=== PATIENT | male | born 1965 | race Two or more races ===

== ENCOUNTER 2024-05-03 13:05 | Emergency (ER) | payer MEDICARE, MEDICAID, SELFPAY ==
[2024-05-03] VITALS (28 sets, daily range): BP systolic 128–220; BP diastolic 64–140; PULSE 92–111; RESP 12–31; TEMP 36.8–39.1; O2SAT 95–100; BMI 50.1
--- NOTE | 2024-05-03 13:14 | XR_ITS ---
Examination: CT brain head without contrast. 2-D sagittal coronal reconstructions Date and time of exam:May 03, 2024 1400 hours Comparison October 30, 2023 CTDI: vol (mGy):55.2 DLP: (mGycm):1186 INDICATIONS: Onset altered mental status today Technique: Multiple CT axial sections of the brain have been obtained, 5 mm slice thickness. Contrast has not been administered. 2-D sagittal, coronal reconstructions have been obtained Low dose protocols were performed. One or more of the following dose reduction techniques were used; automated exposure control, adjustment of the mA and/or KV according to patient size, use of iterative reconstruction technique. Findings: Acute left caudate nucleus hemorrhage at least 3.4 x 2.2 x 3.6 cm which has ruptured into the ventricular system, hemorrhage in the right frontal horn and third ventricle and both trigones Mass effect from this hemorrhage, shift of the frontal horns to the right at least 5 mm There also is subarachnoid hemorrhage over the posterior parietal sulci bilaterally, axial image 15 Cranial vault appears grossly intact with old fracture medial wall left orbit IMPRESSION: Large acute left caudate nucleus hemorrhage as above which has ruptured into the ventricular system Mass effect with shift of the frontal horns to the right at least 5 mm
--- NOTE | 2024-05-03 13:16 | XR_ITS ---
Examination: AP chest single view Technique AP portable semiupright chest single view Exam date and time: May 03, 2024 1434 hours Comparison April 07, 2024 INDICATIONS: Fever today. FINDINGS: Opacity left base obscuring detail left hemidiaphragm Mild left pleural fluid Mild prominence left ventricle Vascular congestion IMPRESSION: Early pneumonia left base
--- NOTE | 2024-05-03 13:18 | EDNOTE_ITS ---
Altered Mental Status RME/HPI General Chief Complaint: Altered Mental Status Stated Complaint: ALTERED MENTAL STATUS, LNW MONDAY Time Seen by Provider: 05/03/24 13:14 Arrival date/time: 05/03/24 13:05 This is a 58-year-old male that is brought into the emergency room with complaints of altered mental status. Patient brought in by ambulance for possible stroke. EMS report left-sided facial droop and left-sided weakness. Unknown when stroke symptoms started. Patient lives alone and last time family saw him was yesterday they saw him through the window and he was sitting on the couch. Upon arrival patient is GCS of 13 patient hypertensive. Per EMS family stated that when patient's ammonia is high he also presents with stroke like symptoms at that time. Patient has a history of alcohol induced cirrhosis, hypertension, history of esophageal varices, GI bleed, diverticulitis. Related Data Home Medications ?Medication ?Instructions ?Recorded ?Confirmed carvedilol 6.25 mg tablet mg 10/30/23 semaglutide (weight loss) 2.4 mg subcut 10/30/23 mg/0.75 mL subcutaneous pen injector (Wegovy) spironolactone 50 mg tablet mg 10/30/23 Previous Rx's ?Medication ?Instructions ?Recorded lactulose 10 gram/15 mL oral 30 g (45 mL) PO TID #3,785 mL 11/02/23 solution rifaximin 550 mg tablet (Xifaxan) 550 mg PO BID #60 tabs 11/02/23 Allergies Allergy/AdvReac Type Severity Reaction Status Date / Time No Known Allergies Allergy Verified 04/07/24 15:59 Review of Systems Review of Systems Systems Reviewed: All systems reviewed, normal except as documented Past Medical History Past Medical History CARDIAC: Positive Cardiac Disorders (HTN) OTHER HISTORY: Positive Blood Transfusions Social History SMOKING STATUS: Never smoker SUBSTANCE USE: does not use ALCOHOL: Former ED Exam General General appearance: Present other (drowsy, smells of urine ) Head Head exam: Present atraumatic Eye Eye exam: Present PERRL and EOMI ENT ENT exam: Present normal exam, normal oropharynx and mucous membranes moist Neck Neck exam: Present normal inspection, full ROM and trachea midline Chest Chest inspection: Present normal inspection and symmetric chest wall rise Respiratory Respiratory exam: Present other (diminished at bases ) Cardiovascular Cardiovascular exam: Present regular rate, normal rhythm and normal heart sounds Abdominal Exam Abdominal exam: Present soft and other (nontender to palpation ) Extremities Exam Extremities exam: Present full ROM Back Exam Back exam: Present normal inspection and full ROM Neurological Exam Neurological exam: Present other (drowsy, awakens with noxious stimuli, able to answer most questions appropriately, bilateral upper extremities equal hand train caller 4/5, able to lift both arms equal on bed, no pronator drift, not able to lift legs off bed but is able to push against my hands like a gas pedal and push feet up equal on b) Psychiatric Psychiatric exam: Present normal affect Skin Skin exam: Present warm and dry Course Course Course Narrative: updated family, [address] [id number] Quality Measures none Orders Category Date Time Status 24 HR Medical Restraints Q2HR Care 05/03/24 17:42 Completed Bedside COVID-19 Antigen Test NOW Care 05/03/24 14:44 Completed Bedside Influenza A&B Antigen Test NOW Care 05/03/24 14:44 Completed EKG (ED ONLY) *Do not use* NOW Care 05/03/24 13:18 Completed Emergency Titration Protocol Stat Care 05/03/24 15:56 Ordered Humphrey [Urinary Catheter] QS Care 05/03/24 14:30 Completed In and Out Catheter X1 Care 05/03/24 13:15 Completed Intubation NOW Care 05/03/24 15:25 Completed Transfuse,blood/blood products ONCE Care 05/03/24 14:39 Completed Transfer to another facility [Transfer/Discharge] Stat Discharge 05/03/24 15:[address] head/brain wo con Stat Exams 05/03/24 13:14 Completed CXR [XR chest 1V post procedure] Stat Exams 05/03/24 15:27 Completed CXRP [XR chest 1V portable] Stat Exams 05/03/24 16:40 Completed EKG (ED Only) Stat Exams 05/03/24 13:18 Draft XR chest 1V Stat Exams 05/03/24 13:16 Completed Alcohol, Blood Medical Stat Lab 05/03/24 13:33 Completed Ammonia Stat Lab 05/03/24 13:33 Completed BNP [B-Type Natriuretic Peptide] Stat Lab 05/03/24 13:33 Completed Blood Culture (Lab) Stat Lab 05/03/24 13:29 Completed CBC Stat Lab 05/03/24 13:33 Completed Comprehensive Metabolic Panel Stat Lab 05/03/24 13:33 Completed Drug Screen,Urine Stat Lab 05/03/24 14:00 Completed Lactate (Lactic Acid) Stat Lab 05/03/24 13:33 Completed PT [Prothrombin Time with INR] Stat Lab 05/03/24 13:33 Completed Sputum Culture and Gram Stain Routine Lab 05/03/24 16:14 Completed Troponin I Stat Lab 05/03/24 13:33 Completed Urinalysis, C/S if Indicated Stat Lab 05/03/24 14:00 Completed Urine Culture Stat Lab 05/03/24 14:00 Completed Acetaminophen Supp [Tylenol Supp] Med 05/03/24 13:30 Discontinued 650 mg MT X1 ONE Dexamethasone Inj [Decadron Inj] Med 05/03/24 14:17 Discontinued 10 mg IV X1 ONE Etomidate Inj [Amidate Inj] Med 05/03/24 14:58 Discontinued 20 mg IVP X1 ONE IV Filter 0.2 Micron Conical [Iv Conical Filter 0.2 Med 05/03/24 16:00 Discontinued Micron] 1 ea Mannitol Inj 20% IVPB 500 ml IV X1 LORazepam [Ativan Inj] Med 05/03/24 16:09 Discontinued 4 mg IVP X1 STA Nicardipine/Ns 20Mg Ivpb [Cardene Ivpb] Med 05/03/24 14:30 Discontinued 20 mg in 200 ml IV 5 mg/hr Phytonadione Inj [Vitamin K Inj] Med 05/03/24 14:34 Discontinued 10 mg IM X1 ONE Propofol 1,000 mg Ivpb [Diprivan Ivpb] Med 05/03/24 14:59 Discontinued 1,000 mg in 100 ml IV 5 mcg/kg/min Rocuronium Inj [Zemuron Inj] Med 05/03/24 16:07 Discontinued 20 mg IVP X1 ONE Sodium Chloride 0.9% 1000 ml [Ns] 1,000 ml Med 05/03/24 13:29 Discontinued IV 999 mls/hr Succinylcholine Inj [Anectine Inj] Med 05/03/24 14:58 Discontinued 100 mg IV X1 ONE Tranexamic Acid 1,000 mg Ivpb [Tranexamic Acid Ivpb] Med 05/03/24 16:00 Discontinued 1,000 mg in 100 ml IV X1 Tranexamic Acid 1,000 mg Ivpb [Tranexamic Acid Ivpb] Med 05/03/24 16:25 Discontinued 1,000 mg in 100 ml IV X1 Tranexamic Acid Inj Med 05/03/24 16:00 Discontinued 1,000 mg IV DAILY cefTRIAXone/D5w 1gm IV premix [Rocephin/D5w 1gm IV Med 05/03/24 14:33 Disc ontinued premix] 50 ml IV X1 levETIRAcetam INJ [Keppra Inj] Med 05/03/24 14:12 Discontinued 1,000 mg IVP X1 ONE Mechanical [Volume Ventilator] Stat RT 05/03/24 Active Vital Signs Vital signs: Vital Signs Temperature 102.4 F H 05/03/24 13:27 Pulse Rate 102 H 05/03/24 13:27 Respiratory Rate 18 05/03/24 13:27 Blood Pressure 128/64 05/03/24 13:27 Pulse Oximetry (%) 95 05/03/24 13:27 Oxygen Delivery Method Room Air 05/03/24 13:27 Procedures -ED EKG Interpretation #1: Date of EK05/03/24 Time of EK:24 Rate: 87 Interpretation: Interpreted by me (Sinus rhythm with occasional supraventricular premature complexes. Nonspecific T wave abnormality.) EKG Impression: Normal QRS Altered Mental Status MDM Narrative MDM Narrative:: Initiating this is a 58-year-old male that is brought into the emergency room with complaints of altered mental status. Patient brought in by ambulance for possible stroke. EMS report left-sided facial droop and left-sided weakness. Unknown when stroke symptoms started. Patient lives alone and last time family saw him was yesterday they saw him through the window and he was sitting on the couch. Upon arrival patient is GCS of 13. patient hypertensive on arrival 180/100. Per EMS family stated that when patient's ammonia is high he also presents with stroke like symptoms at that time per family report. Patient has a history of alcohol induced cirrhosis, hypertension, history of esophageal varices, GI bleed, diverticulitis. CT head: Findings: Acute left caudate nucleus hemorrhage at least 3.4 x 2.2 x 3.6 cm which has ruptured into the ventricular system, hemorrhage in the right frontal horn and third ventricle and both trigones Mass effect from this hemorrhage, shift of the frontal horns to the right at least 5 mm There also is subarachnoid hemorrhage over the posterior parietal sulci bilaterally, axial image 15 Cranial vault appears grossly intact with old fracture medial wall left orbit IMPRESSION: Large acute left caudate nucleus hemorrhage as above which has ruptured into the ventricular system Mass effect with shift of the frontal horns to the right at least [address] scan of head shows brain bleed. I discussed case with at length. He suggested decadron 10mg iv, vitamin k, Mannitol 50grams, ffp, keppra 10 00mg 1v x1 dose. He also wanted nicardipine to be given for a goal blood pressure of 120/80. We transferred to other facility for higher level of care. We first spoke to [facility]. We spoke to Dr. Boyle. He suggested that we do not give patient FFP or vitamin K, and instead give patient 1 g of txa now and then give an additional 1 g over 8 hours of txa. He was not able to accept patient at this time and would be doing a long surgery and feels he will not be available to take care of emergent patient. Transfer arrangements made for patient to be going to [facility]. I spoke to Pauline at the transfer center. Dr. Rayo excepted patient in transport. I also spoke to critical care Dr. Dr Rayo suggested the same to give the patient 1 g of TXA now and give another gram of TXA IV over 8 hours. He would like the nicardipine drip to have a goal blood pressure 150 systolic. He would also like patient to have 1 g/kg of mannitol. Ordered of mannitol changed to 100 g. Patient's mental status declined he would wake up to noxious stimuli but would quickly fall asleep again. Patient intubated at the bedside by Dr. Malloy. Etomidate and succinocholine given for intubation. Patient then started on a propofol drip. Labs show the following white count of 10.7. Hemoglobin and hematocrit are 14.6 and 42. Platelet count is 72. Patient's sodium 143, potassium 4.4, chloride 111, carbon dioxide 27.5 anion gap of 5, BUN of 34, creatinine of 1.0, total bilirubin of 8.1, AST of 151, ALT 40, troponin 0.021, PT 17.1, INR 1.6. Chest x ray: FINDINGS: Opacity left base obscuring detail left hemidiaphragm Mild left pleural fluid Mild prominence left ventricle Vascular congestion IMPRESSION: Early pneumonia left base Patient given rocephin 1 gram IV x 1 dose. IV team helped by placing a central line in right ij. Patient transferred to [facility] Patient data External records reviewed:: [facility] previous records Clinical information provided by:: patient and family Social determinants that could affect healthcare access:: alcohol use Patient has the following chronic illnesses:: see hpi How is presenting disease/condition affected by chronic disease/condition?: exacerbated by Evaluation data The following diagnostics were reviewed and interpreted by me:: lab results, radiology exam(s) and EKG tracing(s) Lab and/or radiology exams considered but not ordered:: none Interpretation Summary: see note Medications / Prescriptions Medications or Prescriptions considered but not ordered:: none Medication administrations:: Medication Administration History Discontinued Medications Acetaminophen (Acetaminophen Supp 650 Mg Supp) 650 mg MT X1 ONE Stop: 05/03/24 13:31 Last Admin: 05/03/24 17:29 Dose: Not Given Documented By: [facility] Non-Admin Reason: Change of Condition Comments: being transferred before could give Dexamethasone Sodium Phosphate (Dexamethasone Sod Phos Inj 10 Mg/Ml Vial) 10 mg IV X1 ONE Stop: 05/03/24 14:18 Last Admin: 05/03/24 17:11 Dose: 10 mg Documented By: [facility] Etomidate (Etomidate Inj 2 Mg/Ml Vial 10 Ml) 20 mg IVP X1 ONE Stop: 05/03/24 14:59 Last Admin: 05/03/24 15:23 Dose: 20 mg Documented By: Sodium Chloride (Ns) 1,000 mls @ 999 mls/hr IV .Q1H1M ONE Stop: 05/03/24 14:29 Last Admin: 05/03/24 16:01 Dose: 999 mls/hr Documented By: [facility] Nicardipine/Sodium Chloride (Cardene Ivpb) 20 mg in 200 mls @ 50 mls/hr IV .Q4H PRN; Protocol PRN Reason: PER PROTOCOL Stop: 06/02/24 14:29 Last Titration: 05/03/24 16:15 Dose: 0 mg/hr, 0 mls/hr Documented By: Admin: 05/03/24 15:31 Dose: 5 mg/hr, 50 mls/hr Documented By: Ceftriaxone Sodium/Dextrose (Rocephin/D5w 1gm Iv Premix) 50 mls @ 100 mls/hr IV X1 ONE Stop: 05/03/24 15:02 Last Admin: 05/03/24 17:29 Dose: Not Given Documented By: KDC Non-Admin Reason: Change of Condition Comments: transferred before could give Propofol (Diprivan Ivpb) 1,000 mg in 100 mls @ 3.946 mls/hr IV .Q24H PRN; Protocol PRN Reason: PER PROTOCOL Stop: 06/02/24 14:58 Last Admin: 05/03/24 17:46 Dose: 30 mcg/kg/min, 23.678 mls/hr Documented By: KDC Co-signed By: GOOD Titration: 05/03/24 17:46 Dose: Infused Documented By: KDC Co-signed By: GOOD Titration: 05/03/24 17:45 Dose: 0 mcg/kg/min, 0 mls/hr Documented By: Admin: 05/03/24 17:05 Dose: 30 mcg/kg/min, 23.678 mls/hr Documented By: KDC Co-signed By: JOSE D Titration: 05/03/24 17:05 Dose: Infused Documented By: KDC Co-signed By: JOSE D Titration: 05/03/24 17:04 Dose: 0 mcg/kg/min, 0 mls/hr Documented By: Titration: 05/03/24 15:57 Dose: 30 mcg/kg/min, 23.678 mls/hr Documented By: Titration: 05/03/24 15:47 Dose: 25 mcg/kg/min, 19.731 mls/hr Documented By: Admin: 05/03/24 15:35 Dose: 5 mcg/kg/min, 3.946 mls/hr Documented By: JOSE D Co-signed By: GOOD IV Miscellaneous Supplies 1 ea (/ Mannitol) 500 mls @ 3,000 mls/hr IV X1 ONE Stop: 05/03/24 16:09 Last Admin: 05/03/24 17:13 Dose: 3,000 mls/hr Documented By: EVANS Tranexamic Acid (Tranexamic Acid Ivpb) 1,000 mg in 100 mls @ 600 mls/hr IV X1 ONE Stop: 05/03/24 16:09 Last Admin: 05/03/24 17:20 Dose: 600 mls/hr Documented By: EVANS Tranexamic Acid (Tranexamic Acid Ivpb) 1,000 mg in 100 mls @ 12.5 mls/hr IV X1 ONE Stop: 05/04/24 00:24 Last Admin: 05/03/24 17:30 Dose: Not Given Documented By: [facility] Non-Admin Reason: Change of Condition Comments: being transferred before could give Levetiracetam (Levetiracetam Inj 100 Mg/Ml Vial 5ml) 1,000 mg IVP X1 ONE Stop: 05/03/24 14:13 Last Admin: 05/03/24 17:08 Dose: 1,000 mg Documented By: [facility] Lorazepam (Lorazepam 2 Mg/Ml Vial) 4 mg IVP X1 STA Stop: 05/03/24 16:10 Last Admin: 05/03/24 16:13 Dose: 4 mg Documented By: [facility] Phytonadione (Phytonadione Inj 10 Mg/Ml Amp) 10 mg IM X1 ONE Stop: 05/03/24 14:35 Last Admin: 05/03/24 16:20 Dose: 10 mg Documented By: [facility] Rocuronium [place] (Rocuronium Inj 10 Mg/Ml Vial 10 Ml) 20 mg IVP X1 ONE Stop: 05/03/24 16:08 Last Admin: 05/03/24 16:12 Dose: 20 mg Documented By: [facility] Co-signed By: JOSE D Comments: STOPPED PROPOFOL TO GIV MED Succinylcholine Chloride (Succinylcholine Inj 20 Mg/Ml Vial 10 Ml) 100 mg IV X1 ONE Stop: 05/03/24 14:59 Last Admin: 05/03/24 15:23 Dose: 100 mg Documented By: Tranexamic Acid (Tranexamic Acid Inj 1,000 Mg/10 Ml Vial) 1,000 mg IV DAILY CHRISTINA Stop: 06/02/24 15:59 Last Admin: 05/03/24 18:04 Dose: Not Given Documented By: [facility] Non-Admin Reason: Change of Condition see mar Consultations Consultation(s) initiated? (list below): Yes Consultation #1 (Physician, Specialty, Details): [id number] Consultation #2 (Physician, Specialty, Details): [facility] [id number] spoke to pauline hopkins 0536, accepted Diagnosis Differential diagnosis altered mental status: alcoholic intoxication, altered mental status, subarachnoid hemorrhage and other (ammonia elevated, uti, pneumonia ) Most likely diagnosis given after review of the tests above:: brain bleed Admission Indicated Admission indicated?: not indicated Explain why admission is indicated or not indicated:: pt transferred Admission Request Was there a request for admission?: No Disposition Plan Disposition Plan: Transfer Discharge Plan Plan Patient Disposition: [facility] Patient condition on transfer: Stable Prescriptions/Referrals Prescriptions/Med Rec: No Action carvedilol 6.25 mg tablet Patient Comments: TAKE 1 TABLET BY MOUTH TWICE DAILY WITH FOOD spironolactone 50 mg tablet Patient Comments: TAKE 1 TABLET BY MOUTH EVERY DAY Wegovy 2.4 mg/0.75 mL pen injector SUBCUT Xifaxan 550 mg Tablet 550 mg PO BID Qty: 60 2RF lactulose 10 gram/15 mL solution 30 g PO TID Qty: 3785 2RF Rx Instructions: With a goal of 3-4 bowel movements daily Referrals: Migel Lara MD [Primary Care Provider] - In 1 week Problem List Clinical Impression: Pneumonia, Subarachnoid hemorrhage, Fever, Intraventricular hemorrhage Patient/Caregiver Discharge Instructions Print Language: Tajik Stand Alone Forms: Isa Award Info., Patient Portal Info Letter PA/ICT SUPPORT ENGINEER Supervising Physician PA/ICT SUPPORT ENGINEER Supervising Physician: lee
--- NOTE | 2024-05-03 13:18 | EKG_ITS ---
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
[2024-05-03 13:44] LABS: Lactate (Lactic Acid) 3.6 mMol/L (0.4-2.0)
--- NOTE | 2024-05-03 13:48 | PC.NURSE ---
BIBA for AMS since Monday, Bottled Beverage Inspector. Upon arrival, pt has slurred speech. LKW, per auto engine mechanic, was on Monday04/29/2024. Pt has mild L-sided facial with general weakness but equal & strong carpenter bridge strength on bilateral hands. Pt also able to perform pedal movements with bialteral foot independently. Pt has hx of liver cirrhosis and hypertension.
[2024-05-03 13:51] LABS: Basophils % (Auto) 0 % (0-2.5); Eosinophils % (Auto) 0 % (0-10); Hemoglobin 14.6 g/dL (13.5-16.0); Immature Granulocytes % (Auto) 1 % (0-0); Immature Granulocytes Auto 0.06 Thou/mm3 (0.00-0.00); Lymphocytes % (Auto) 10 % (10-50); Mean Corpuscular HGB Conc 34.8 g/dl (31.0-37.0); Mean Corpuscular Hemoglobin 32.2 pg (25.0-35.0); Mean Corpuscular Volume 93 fL (80-100); Monocytes # (Auto) 1.6 Thou/mm3 (0.0-0.8); Monocytes % (Auto) 15 % (0-12); Neutrophils % (Auto) 75 % (37-80); Nucleated Red Blood Cell % 0 /100 WBC (0); Platelet Count 72 Thou/mm3 (140-440); RDW Standard Deviation 51.8 fL (35.1-43.9); Red Blood Count 4.54 Miln/mm3 (4.50-5.90); White Blood Count 10.7 Thou/mm3 (3.8-10.6)
[2024-05-03 13:59] LABS: INR 1.6 (0.9-1.3); Prothrombin Time 17.1 Seconds (9.0-12.2)
[2024-05-03 14:03] LABS: Ammonia 39 uMol/L (11-32); B-Type Natriuretic Peptide 32 pg/mL (0-100)
[2024-05-03 14:04] LABS: Albumin, Serum 3.1 gm/dL (3.5-5.0); Alcohol, Blood Medical < 10.0 mg/dL (0-10.0); Alkaline Phosphatase 142 U/L (46-116); Anion Gap 5 (7-16); Aspartate Amino Transferase 151 U/L (0-34); BUN/Creatinine Ratio 34 Ratio (12-20); Bilirubin,Total 8.1 mg/dL (0.3-1.2); Blood Urea Nitrogen 34 mg/dL (9-23); Calcium (Corrected) 9.7 mg/dL (8.5-10.1); Carbon Dioxide 27.5 mMol/L (20.0-31.0); Chloride 111 mMol/L (98-107); Glucose 117 mg/dL (74-106); Osmolality,Calculated 293 (275-295); Potassium 4.4 mMol/L (3.4-5.1); Sodium 143 mMol/L (136-145); Troponin I 0.021 ng/mL (0.0-0.045); eGFR > 60 See Note
[2024-05-03 14:08] LABS: Slide Review Platelets confirmed
[2024-05-03 14:15] LABS: Alanine Aminotransferase 40 U/L (10-49); Albumin/Globulin Ratio 0.9 (1.2-2.2); Globulin 3.6 gm/dL (2.3-3.5); Total Protein 6.7 gm/dL (5.7-8.2)
--- NOTE | 2024-05-03 14:36 | PC.CM ---
Addendum entered by David uW RN 05/03/24 16:15: ED to ED report to be called at [phone] Addendum entered by David Wu RN 05/03/24 16:13: 1530 Patient accepted by [facility] Dr. Rayo. Confirmed flight with [facility] ETA 1630, Packets and disc created for [facility] and [facility], handed off to ER CN Radha. Addendum entered by David Wu RN 05/03/24 15:18: Contacted [facility] [employer] [facility], they are performing a flight check and will confirm, ETA 60 if accepted. Addendum entered by David Wu RN 05/03/24 15:07: Images pushed to [facility] and [facility]. Addendum entered by David Wu RN 05/03/24 15:06: Received call from [facility], Dr. Boyle has reviewed images and due to change in patient's status and his schedule, he is now declining transfer, recommending [facility]. Addendum entered by David Wu RN 05/03/24 14:58: Received call from [facility] ADRIAN Peraza, Dr. Boyle will accept patient ER to ER, number for report [phone]. ER CN updated on acceptance. Original Note: Received call from ER CN requesting transfer request for neurosurgery, clinicals sent to [facility], [facility], [facility], and [facility].
--- NOTE | 2024-05-03 15:01 | PC.CC ---
ASWViv was consulted by LESIA Delatorre to make contact with the family as she needed to speak to them regarding his medical condition. ASSimi Nam made contact with patient's daughter Estephania Moser introduced self, role, and reason for contact and let her know that LESIA Delatorre would be contacting her regarding her father.
[2024-05-03] MEDS: ETOMIDATE INJ 2 MG/ML VIAL 10 ML 20 MG IVP (15:23)
[2024-05-03] MEDS: SUCCINYLCHOLINE INJ 20 MG/ML VIAL 10 ML 100 MG IV (15:23)
--- NOTE | 2024-05-03 15:25 | PC.NURSE ---
Pt intubated at this time; positive color change. 23cm at lip per RT.
--- NOTE | 2024-05-03 15:27 | XR_ITS ---
Examination: AP chest single view TECHNIQUE: AP portable supine chest single view Exam date and time: May 03, 2024 1535 hours Comparison May 03, 2024 1434 hours INDICATIONS: Hypoxic respiratory failure postintubation FINDINGS: Mild prominence left ventricle Endotracheal tube tip 4.2 cm above clem Pneumonia is not clearly evident at the left base on this study Minimal left pleural disease IMPRESSION: Endotracheal tube tip 4.2 cm above clem
[2024-05-03] MEDS: NICARDIPINE/NS 20MG IVPB 20 MG/200 ML BAG 50 MG IV (15:31)
[2024-05-03] MEDS: PROPOFOL 1,000 MG IVPB 1,000 MG/100 ML VIAL 3.946 MG IV (15:35)
[2024-05-03] MEDS: SODIUM CHLORIDE 0.9% 1000 ML 1,000 ML 999 ML IV (16:01)
--- NOTE | 2024-05-03 16:04 | PC.NURSE ---
AND JOSÉ N/P INFORMED THAT NURSE UNABLE TO IV MEDICATIONS DUE TO NOT BEING ABLE TO GET ANOTHER IV. AND CAN'T MIX MEDS WITH PROPOFOL OR NICARAPINE DRIP
--- NOTE | 2024-05-03 16:06 | PC.NURSE ---
@1535- Pt started on propofol drip. @1540- Per Dr. Malloy verbal order with readback , push 50mg of propofol to pt IVP STAT. Pt is agitated. RN pushed 50mg (5mL) of propofol from propofol bottle at this time. @1545- Per Dr. Malloy verbal order with readback , push 50mg of propofol to pt IVP STAT again. Pt is still agitated. RN pushed 50mg (5mL) of propofol from propofol bottle at this time. @31159- Per Dr. Malloy verbal order with readback , increase pt's propofol drip titration to 25mcg/kg/min due to pt still being agitated. RN increased pt's propofol drip to 25mcg/kg/min at this time.
[2024-05-03] MEDS: ROCURONIUM INJ 10 MG/ML VIAL 10 ML 20 MG IVP (16:12)
[2024-05-03] MEDS: LORazepam 2 MG/ML VIAL 4 MG IVP (16:13)
--- NOTE | 2024-05-03 16:15 | PC.NURSE ---
RN informed Makenna Ramos NP that pt's BP is 139/112; RN seeking clarification to discontinue Nicardipine drip. Per Makenna Ramos NP, stop Nicardipine drip at this time. Pt's systolic BP goal is 150.
[2024-05-03] MEDS: PHYTONADIONE INJ 10 MG/ML AMP IM (16:20)
--- NOTE | 2024-05-03 16:22 | PC.CC ---
Viv KLINE was consulted br LESIA Delatorre to inform patient's daughter that patient is being transferred to [facility]. ASW made contact patient's daughter Estephania and provided her with update that patient will be going to [facility].
[2024-05-03 16:23] LABS: Collection Type, Urine Catheter
--- NOTE | 2024-05-03 16:32 | PC.NURSE ---
Dr. Palmer at bedside performing emergent central line insertion.
[2024-05-03 16:37] LABS: Amphetamine/Methamp Scrn,U Negative (Negative); Barbiturate Screen,Urine Negative (Negative); Benzodiazepines Screen,Urine Negative (Negative); Benzoylecgonine Screen, Ur Negative (Negative); Fentanyl Screen,Urine Negative (Negative); Opiate Screen,Urine Negative (Negative); THC Screen,Urine Negative (Negative)
--- NOTE | 2024-05-03 16:39 | PC.NURSE ---
@1520- Pt has GCS change to 8; Dr. Malloy made aware at this time. Per Dr. Malloy, we will need to intubate pt. Vebal orders received for rapid sequence intubation.
--- NOTE | 2024-05-03 16:40 | XR_ITS ---
Examination: AP chest single view Technique one AP portable supine chest single view Exam date and time: May 03, 2024 at 1659 hours Comparison May 03, 2024 INDICATIONS: Hypoxic respiratory failure today, postintubation post central line placement FINDINGS: Mild enlargement cardiac contour Pleural parenchymal disease left base Endotracheal tube tip 4 cm above clem Right internal jugular central line tip right atrium no pneumothorax Mild to moderate vascular congestion IMPRESSION: Endotracheal tube tip 4 cm above clem Right internal jugular central line tip right atrium no pneumothorax
[2024-05-03 16:43] LABS: Reflex Lactate? Y
[2024-05-03] MEDS: PROPOFOL 1,000 MG IVPB 1,000 MG/100 ML VIAL 23.678 MG IV ×2 (17:05→17:46)
[2024-05-03] MEDS: levETIRAcetam INJ 100 MG/ML VIAL 5ML 1000 MG IVP (17:08)
[2024-05-03 17:09] LABS: Amorphous Crystals,Urine Present (Absent); Bilirubin,Urine 1+ (Negative); Blood,Urine 2+ (Negative); Clarity,Urine Clear (Clear/Hazy); Color,Urine Drk-Yellow (Lt Yel-Yel); Glucose, Urine Negative (Negative); Hyaline Casts,Urine < 1 /hpf (0-1); Ketones,Urine Negative (Negative); Leukocyte Esterase,Urine Negative (Negative); Nitrite,Urine Negative (Negative); Protein,Urine Trace (Neg - Trace); RBC,Urine 17 /hpf (0-3); Specific Gravity,Urine 1.027 (1.001-1.035); Squamous Epithelial Cell,Urine 1 /hpf (0-5); Urobilinogen,Urine 12 mg/dL (0.0-1.0); WBC,Urine 19 /hpf (0-5)
--- NOTE | 2024-05-03 17:10 | PC.NURSE ---
reach flight team here and report given by kali hunt
[2024-05-03] MEDS: DEXAMETHASONE SOD PHOS INJ 10 MG/ML VIAL IV (17:11)
--- NOTE | 2024-05-03 17:11 | PC.NURSE ---
Per Makenna Ramos NP, ok to use central line at this time.
[2024-05-03] MEDS: FILTER MICRON CONICAL IV (17:13)
[2024-05-03] MEDS: MANNITOL IV (17:13)
[2024-05-03] MEDS: TRANEXAMIC ACID 1,000 MG IVPB 1,000 MG/100 ML BAG 600 MG IV (17:20)
--- NOTE | 2024-05-03 17:36 | PC.NURSE ---
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 spare bottle taken from [employer] and given to [facility] flight nurse due to having transport time of 1 hour to [facility] in [place]
[2024-05-03 18:02] LABS: Culture Indicated,Urine Yes
--- NOTE | 2024-05-03 23:39 | PD.RESPROC ---
Procedures Procedure Date / Time 05/03/24 16:15 Central Line Placement Right IJ: Indication(s): poor, or inadequate peripheral venous access Time out done, and the following verified: correct patient, side and site, procedure, patient position and implants and/or equipment Patient placed on monitor/pulse ox: Yes Hand Hygiene: alcohol-based hand rub Max Sterile Barrier Techniques used: cap, mask, sterile gown, sterile gloves and sterile full body drape Central line prep: Povidone-Iodine 1% Local anesthesia used: other anesthetic Ultrasound used for placement: Yes Sterile Technique if Ultrasound used, including sterile gel: yes Central line lumen inserted: triple Post procedure: sutured in place, good blood return, all ports aspirated, flushed, capped and sterile dressing applied Post procedure x-ray: tip of catheter in good position and no pneumothorax seen Patient tolerated procedure: well and no complications EBL(ml): 5 Complications: none
== END 2024-05-03 17:50 | disposition short-term general hospital (02) ==
PROVIDERS: Nurse Practitioner Family; Emergency Provider Emergency Medicine; PCP Family Medicine
DX: I60.9 Nontraumatic subarachnoid hemorrhage, unspecified (principal); I61.5 Nontraumatic intracerebral hemorrhage, intraventricular; J18.9 Pneumonia, unspecified organism; I49.1 Atrial premature depolarization; I10 Essential (primary) hypertension; R40.2412 Glasgow coma scale score 13-15, at arrival to emergency department; Z75.1 Person awaiting admission to adequate facility elsewhere
CPT/HCPCS: 36556; 31500; 51702; 36415; 36600; 70450; 71045; 80053; 80307; 80320; 81001; 82140; 82803; 83605; 83880; 84484; 85025; 85610; 86850; 86900; 86901; 86927; 87040; 87086; 87205; 93005; 94002; 96365; 96372; 96375; 99285; C1751; J0330; J1100; J1953; J2060; J2404; J2704; J3430; J3490; J7030; G0480